=== PATIENT | male | born 1975 | race Caucasian/White ===

== ENCOUNTER 2018-06-08 19:28 | Emergency (ER) | payer MEDICAID, OTHER ==
[~2018-06-08] VITALS: Ht 175.3 cm; Wt 90.7 kg
[2018-06-08 22:22] VITALS: BP 138/88
== END 2018-06-08 22:26 | disposition home or self-care (01) ==
LOC: ER 19:37
DX: S82.62XA Displaced fracture of lateral malleolus of left fibula, initial encounter for closed fracture (principal); V03.90XA Pedestrian on foot injured in collision with car, pick-up truck or van, unspecified whether traffic or nontraffic accident, initial encounter; Z88.8 Allergy status to other drugs, medicaments and biological substances; Y93.89 Activity, other specified; Y99.8 Other external cause status; Y92.89 Other specified places as the place of occurrence of the external cause
CPT/HCPCS: 29505; 73610

== ENCOUNTER 2018-06-16 09:02 | Emergency (ER) | payer MEDICAID ==
[~2018-06-16] VITALS: Ht 175.3 cm; Wt 90.7 kg
[2018-06-16 09:27] VITALS: BP 148/92
== END 2018-06-16 09:58 | disposition home or self-care (01) ==
LOC: ER 09:02
DX: M25.572 Pain in left ankle and joints of left foot (principal); I10 Essential (primary) hypertension; Z48.01 Encounter for change or removal of surgical wound dressing; Z88.6 Allergy status to analgesic agent